=== PATIENT | female | born 1960 | race African-American/Black ===

== ENCOUNTER → 2018-01-24 17:11 | Outpatient (CLI) | payer MEDICARE | END | disposition home or self-care (01) | LOC: D.LABREF 17:11 | DX: N39.0 Urinary tract infection, site not specified (principal); R31.9 Hematuria, unspecified ==

== ENCOUNTER → 2018-02-03 09:42 | Outpatient (CLI) | payer MEDICARE | END | disposition home or self-care (01) | LOC: D.US 09:42 | DX: R31.21 Asymptomatic microscopic hematuria (principal) ==

== ENCOUNTER → 2018-04-24 20:55 | Outpatient (CLI) | payer MEDICARE | END | disposition home or self-care (01) | LOC: D.MAMMO 16:15 | DX: Z12.31 Encounter for screening mammogram for malignant neoplasm of breast (principal) ==

== ENCOUNTER → 2018-09-02 17:50 | Outpatient (CLI) | payer MEDICARE, MEDICAID | END | disposition home or self-care (01) | LOC: D.MAMMO 08-06 13:30 | DX: R92.8 Other abnormal and inconclusive findings on diagnostic imaging of breast (principal) ==

== ENCOUNTER → 2018-10-23 09:02 | Outpatient (CLI) | payer MEDICARE, MEDICAID | END | disposition home or self-care (01) | LOC: D.RAD 09:02 | DX: M62.830 Muscle spasm of back (principal); M47.897 Other spondylosis, lumbosacral region; M25.562 Pain in left knee; M25.50 Pain in unspecified joint ==